=== PATIENT | female | born 1965 | race Caucasian/White ===

== ENCOUNTER 2017-02-12 19:07 | Emergency (ER) | payer MEDICAID ==
[2017-02-12] MEDS: ALBUTEROL/IPRATROPIUM (NEB) 3 ML AMP HHN (21:33)
== END 2017-02-12 23:12 | disposition home or self-care (01) ==
LOC: FTE 19:07
DX: J20.9 Acute bronchitis, unspecified (principal); J45.909 Unspecified asthma, uncomplicated
CPT/HCPCS: 94664; 99284-25

== ENCOUNTER 2017-05-05 21:06 | Emergency (ER) | payer MEDICAID | END 2017-05-05 21:35 | disposition home or self-care (01) | LOC: E/R 21:35 | DX: J20.9 Acute bronchitis, unspecified (principal); J45.909 Unspecified asthma, uncomplicated | CPT/HCPCS: 99284; Z7502 ==

== ENCOUNTER 2017-05-17 18:13 | Emergency (ER) | payer MEDICAID ==
[2017-05-17] MEDS: KETOROLAC 30 MG INJ IM (20:44)
== END 2017-05-17 22:43 | disposition home or self-care (01) ==
LOC: FTE 18:13
DX: M25.532 Pain in left wrist (principal); J45.909 Unspecified asthma, uncomplicated
CPT/HCPCS: 29125; 73110-LT; 96372; 99284-25

== ENCOUNTER 2017-11-01 11:32 | Emergency (ER) | payer MEDICAID ==
[2017-11-01] MEDS: KETOROLAC 30 MG INJ IM (12:01)
== END 2017-11-01 12:55 | disposition home or self-care (01) ==
LOC: FTE 11:32
DX: M25.562 Pain in left knee (principal); J45.909 Unspecified asthma, uncomplicated
CPT/HCPCS: 96372; 99284-25

== ENCOUNTER 2018-01-11 18:13 | Emergency (ER) | payer MEDICAID ==
[2018-01-11] MEDS: IPRATROPIUM (NEB) 0.5 MG/2.5 ML AMP HHN (21:24)
[2018-01-11] MEDS: ALBUTEROL 0.083% (NEB) 2.5 MG/3 ML AMP HHN (21:24)
[2018-01-11] MEDS: DEXAMETHASONE 10 MG/ML 1 ML INJ IM (21:31)
== END 2018-01-11 22:10 | disposition home or self-care (01) ==
LOC: FTE 18:13
DX: J45.901 Unspecified asthma with (acute) exacerbation (principal)
CPT/HCPCS: 71046; 94664; 96372; 99284-25